=== PATIENT | male | born 2000 | race African-American/Black ===

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

== ENCOUNTER 2019-02-24 22:35 | Emergency (ER) | payer BC, SELFPAY ==
[2019-02-24 22:56] VITALS: BP 122/80; PULSE 79
[2019-02-24] MEDS ORDERED: Famotidine 20 MG Tab PO STA (23:51)
--- NOTE | 2019-02-24 23:52 | EDM.PDOC ---
ED HPI GENERAL MEDICAL PROBLEM - General Chief Complaint: Gastrointestinal Problem Stated Complaint: ABDOMINAL PAIN Time Seen by Provider: 02/24/19 23:05 Source of Information: Reports: Patient History Limitations: Reports: No Limitations - History of Present Illness INITIAL COMMENTS - FREE TEXT/NARRATIVE: Mr. Mcginnis is a pleasant 18-year-old man with a past medical history significant for right kidney atrophy and suspected gastritis/GERD, based on 2 prior visits to this ED, on 08/25/2015 and 09/24/2017. On his initial visit, it was recommended that he take ucjv-sjs-[id number] medications, and on the second visit, it was recommended that he take Prilosec daily with Maalox as needed, then switch to Zantac once a day. The patient now presents to the ED stating that he developed central abdominal pain on 02/19/2019. He describes his pain as achy. It comes and goes, and he has not identified any modifiers. He states that he had nausea and vomiting from 02/19/2019 through 02/22/2019, but none since. He reports that he developed watery diarrhea on 02/20/2019. He had a subjective fever on 02/22/2019, only. The patient states that he has had similar symptoms, about once a year, for the past several years. He has not undergone a prior EGD or colonoscopy. The patient states that he did not take any ttrq-wwh-djmthcw or home remedies since his symptoms began on 02/19/2019. The patient does not have a PCP. He has not received an influenza vaccine this season, and declined an offer for one here today. Middle Abdomen Pain Score (Numeric/FACES): 3 - Related Data Allergies Allergy/AdvReac Type Severity Reaction Status Date / Time No Known Allergies Allergy Verified 02/24/19 22:56 Home Meds: Home Meds . [No Known Home Meds] 09/24/17 [History] Past Medical History Gastrointestinal History: Reports: Gastritis (suspected), GERD (suspected) Genitourinary History: Reports: Other (See Below) (Right kidney atrophy on CT scan) - Past Surgical History HEENT Surgical History: Reports: Oral Surgery (wisdom teeth extraction) Social & Family History - Family History Family Medical History: Noncontributory - Tobacco Use Smoking Status *Q: Never Smoker Tobacco Use Within Last Twelve Months: Vaping (nicotine, 16 yo -> 17 yo) - Caffeine Use Caffeine Use: Reports: Coffee, Soda - Alcohol Use Alcohol Use History: Yes Alcohol Use Frequency: Socially - Recreational Drug Use Recreational Drug Use: Yes Drug Use in Last 12 Months: Yes Recreational Drug Type: Reports: Marijuana/Hashish (last smoked Jan 2019) - Living Situation & Occupation Living situation: Reports: Single, Other (Roomates) 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 ED EXAM, GI/ABD - Physical Exam Exam: See Below Exam Limited By: No Limitations General Appearance: Alert, WD/WN, No Apparent Distress (appears comfortable) Eyes: Bilateral: Normal Appearance, EOMI Ears: Normal External Exam, Hearing Grossly Normal Nose: Normal Inspection Throat/Mouth: Normal Inspection, Normal Lips, Normal Voice, No Airway Compromise Head: Atraumatic, Normocephalic Neck: Normal Inspection, Full Range of Motion Respiratory/Chest: No Respiratory Distress, Lungs Clear, Normal Breath Sounds, No Accessory Muscle Use Cardiovascular: Normal Peripheral Pulses, Regular Rate, Rhythm, No Edema, No Gallop, No JVD, No Murmur, No Rub GI/Abdominal Exam: Normal Bowel Sounds (active!), Soft, Non-Tender (including the central abdomen), No Organomegaly, No Distention, No Abnormal Bruit, No Mass (Male) Exam: Deferred Rectal (Males) Exam: Deferred Back Exam: Normal Inspection, Full Range of Motion, NT Extremities: Normal Inspection, Normal Range of Motion, No Pedal Edema, Normal Capillary Refill Neurological: Alert, Oriented, Normal Cognition, No Motor/Sensory Deficits Psychiatric: Normal Affect Skin Exam: Warm, Dry, Intact, Normal Color, No Rash Course - Vital Signs Last Recorded V/S: Last Vital Signs Temp 36.9 C 02/24/19 22:53 Pulse 79 02/24/19 22:53 Resp 16 02/24/19 22:53 BP 122/80 02/24/19 22:53 Pulse Ox 99 02/24/19 22:53 - Orders/Labs/Meds Meds: Medications Discontinued Medications Generic Name Dose Route Start Last Admin Trade Name Freq PRN Reason Stop Dose Admin Famotidine 40 mg 02/24/19 23:51 02/25/19 00:00 Pepcid PO 02/24/19 23:52 40 mg ONETIME STA Administration - Re-Assessments/Exams Free Text/Narrative Re-Assessment/Exam: 02/24/19 23:52 As per the HPI, the patient has history of similar pain in the past, thought due to gastritis and/or GERD. Although recommendations in the past have included yvch-gjw-zigtbvj medications, Maalox, Zantac, and Prilosec, the patient did not try any of those for his current symptoms. Since the patient's abdomen is soft with active bowel sounds and is completely nontender, I do not see an indication for a work-up at this time. I am, however , recommending that we start him on 40 mg of oral famotidine now, then have him take 1 tablet of wdve-qai-ierdkag famotidine either once or twice a day. Because of the recurrent nature of his abdominal pain, I am recommending that he undergo an EGD, therefore I will refer him to Dr. Ayers. The patient is agreeable with this plan. Departure - Departure Time of Disposition: 00:01 Disposition: Home, Self-Care 01 Condition: Good Clinical Impression: Gastritis Qualifiers: Gastritis type: unspecified gastritis Chronicity: acute Gastritis bleeding: without bleeding Qualified Code(s): K29.00 - Acute gastritis without bleeding - Discharge Information *PRESCRIPTION DRUG MONITORING PROGRAM REVIEWED*: Not Applicable *COPY OF PRESCRIPTION DRUG MONITORING REPORT IN PATIENT MALIK: Not Applicable Instructions: Gastritis, Adult, Zykx-sx-[id number] Referrals: Charly Ayers MD [Physician] - Forms: ED Department Discharge, ED Return to Work/School Form Additional Instructions: You were seen in the emergency room for recurrent central abdominal pain, nausea , vomiting, and watery diarrhea. Based on your history and physical examination, you are most likely suffering from gastritis. You have been started on the antacid medicine famotidine (Pepcid). Famotidine is available skmz-hjg-tbnohfp, and generic is just as good as the brand name. We recommend that you take 1 tablet of famotidine either once or twice a day, on a regular basis. Given the recurrent nature of your abdominal pain, we recommend that you undergo an EGD (scope of your stomach). Please follow-up with the Surgeon Dr. Charly Ayers in this regard. If any other problems, please do not hesitate to return to the ER. Sepsis Event Note - Evaluation Sepsis Screening Result: No Definite Risk - Focused Exam Vital Signs: Vital Signs Temp Pulse Resp BP Pulse Ox 02/24/19 22:53 36.9 C 79 16 122/80 99 Date Exam was Performed: 02/25/19 Time Exam was Performed: 00:17
== END 2019-02-25 00:15 | disposition home or self-care (01) ==
LOC: JD.ED 22:35
DX: K29.00 Acute gastritis without bleeding (principal); Z87.891 Personal history of nicotine dependence
CPT/HCPCS: 99283; A9270; 99282

== ENCOUNTER 2019-03-08 06:10 | Emergency (ER) | payer BC ==
[2019-03-08 06:19] VITALS: BP 152/81; PULSE 81
[2019-03-08] MEDS ORDERED: Famotidine 20 MG Tab PO STA (06:44)
--- NOTE | 2019-03-08 06:57 | EDM.PDOC ---
ED HPI GENERAL MEDICAL PROBLEM - General Chief Complaint: Abdominal Pain Stated Complaint: ABDOMINAL PAIN Time Seen by Provider: 03/08/19 06:32 Source of Information: Reports: Patient History Limitations: Reports: No Limitations - History of Present Illness INITIAL COMMENTS - FREE TEXT/NARRATIVE: Mr. Mcginnis is a 18-year-old man with a past medical history significant for right kidney atrophy and suspected gastritis/GERD, based on 3 prior visits to this ED, on 08/25/2015, 09/24/2017, and 02/24/2019. On his initial visit, it was recommended that he take mwlc-idi-bffjkpt medications, and on his second visit, it was recommended that he take Prilosec daily with Maalox as needed, then switched to Zantac once a day. On his most recent visit, it was recommended that he start taking icyx-eyo-xgvcyhl famotidine once or twice a day, then follow-up with the surgeon Dr. Charly Ayers to arrange for an outpatient EGD. The patient now returns to the ED stating that he felt good for a few days after his last ED visit, but that his pain has recurred on a near daily basis, the same as it had before. He has nausea and vomiting with some of his abdominal pain, but not every time. He also has occasional watery diarrhea. His condition is essentially unchanged from previously. The patient informs me that he did not take famotidine, or any other antacid, and he did not make an appointment to follow-up with Dr. Ayers. No recent fever. The patient does not have a PCP. He has not received any influenza vaccine this season, and declined an offer for one here today. Abdominal Pain Score (Numeric/FACES): 3 - Related Data Allergies Allergy/AdvReac Type Severity Reaction Status Date / Time No Known Allergies Allergy Verified 03/08/19 06:19 Home Meds: Home Meds . [No Known Home Meds] 09/24/17 [History] Past Medical History Gastrointestinal History: Reports: Gastritis (suspected), GERD (suspected) Genitourinary History: Reports: Other (See Below) (Right kidney atrophy on CT scan) - Past Surgical History HEENT Surgical History: Reports: Oral Surgery (wisdom teeth extraction) Social & Family History - Family History Family Medical History: Noncontributory - Tobacco Use Smoking Status *Q: Never Smoker Tobacco Use Within Last Twelve Months: Vaping (nicotine, 16 yo -> 17 yo) Second Hand Smoke Exposure: No - Caffeine Use Caffeine Use: Reports: Coffee, Energy Drinks, Soda - Alcohol Use Alcohol Use History: Yes Alcohol Use Frequency: Socially - Recreational Drug Use Recreational Drug Use: Yes Drug Use in Last 12 Months: Yes Recreational Drug Type: Reports: Marijuana/Hashish (last smoked Jan 2019) - Living Situation & Occupation Living situation: Reports: Single, Other (Roomates) 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 ED EXAM, GI/ABD - Physical Exam Exam: See Below Exam Limited By: No Limitations General Appearance: Alert, WD/WN, No Apparent Distress Eyes: Bilateral: Normal Appearance, EOMI Ears: Normal External Exam, Hearing Grossly Normal Nose: Normal Inspection Throat/Mouth: Normal Inspection, Normal Lips, Normal Voice, No Airway Compromise Head: Atraumatic, Normocephalic Neck: Normal Inspection, Full Range of Motion Respiratory/Chest: No Respiratory Distress, Lungs Clear, Normal Breath Sounds, No Accessory Muscle Use Cardiovascular: Normal Peripheral Pulses, Regular Rate, Rhythm, No Edema, No Gallop, No JVD, No Murmur, No Rub GI/Abdominal Exam: Normal Bowel Sounds, Soft, Non-Tender, No Organomegaly, No Distention, No Abnormal Bruit, No Mass (Male) Exam: Deferred Rectal (Males) Exam: Deferred Back Exam: Normal Inspection, Full Range of Motion, NT Extremities: Normal Inspection, Normal Range of Motion, No Pedal Edema, Normal Capillary Refill Neurological: Alert, Oriented, Normal Cognition, No Motor/Sensory Deficits Psychiatric: Normal Affect Skin Exam: Warm, Dry, Intact, Normal Color, No Rash Course - Vital Signs Last Recorded V/S: Last Vital Signs Temp 36.4 C 03/08/19 06:16 Pulse 81 03/08/19 06:16 Resp 18 03/08/19 06:16 BP 152/81 H 03/08/19 06:16 Pulse Ox 97 03/08/19 06:16 - Orders/Labs/Meds Meds: Medications Discontinued Medications Generic Name Dose Route Start Last Admin Trade Name Freq PRN Reason Stop Dose Admin Famotidine 40 mg 03/08/19 06:44 03/08/19 06:51 Pepcid PO 03/08/19 06:45 40 mg ONETIME STA Administration - Re-Assessments/Exams Free Text/Narrative Re-Assessment/Exam: 03/08/19 06:45 As per the HPI, the patient's current presentation is virtually identical to that of 02/24/2019, where the patient has central abdominal pain, nausea, vomiting, and watery diarrhea, felt most likely due to gastritis. As before, his physical exam is completely benign. I had recommended at that time that he begin taking ynac-kqp-yhtnqhc famotidine 1 tablet either once or twice a day on a regular basis - he did not. I recommended that he follow-up with the surgeon Dr. Ayers to arrange for an EGD - he did not. Since he did not follow any of my recommendations, we cannot say that his plan of care failed. I therefore have no reason to change the plan of care. The patient will therefore be given 40 mg of oral famotidine now, and I will discharge him home with the same recommendations of taking one tablet either once or twice a day on a regular basis, and follow-up with Dr. Ayers to arrange for an EGD. The patient asked if he could have an XRay or something, however, this is a long -term problem (years), and the patient's current physical termination is completely benign, therefore I cannot justify an emergency CT scan or x-ray. The patient said that he would prefer to be referred to a Correctional Counselor/Case Manager in [place] as opposed to seeing Dr. Ayers here, but he did not say why. Unfortunately, I do not have the call schedule of the Gastroenterologists in [place]. I informed the patient that if he wanted to see a Correctional Counselor/Case Manager in [place], he should call the physician referral service for either [facility] or [facility]. Departure - Departure Time of Disposition: 06:59 Disposition: Home, Self-Care 01 Condition: Good Clinical Impression: Gastritis Qualifiers: Gastritis type: unspecified gastritis Chronicity: acute Gastritis bleeding: without bleeding Qualified Code(s): K29.00 - Acute gastritis without bleeding - Discharge Information *PRESCRIPTION DRUG MONITORING PROGRAM REVIEWED*: Not Applicable *COPY OF PRESCRIPTION DRUG MONITORING REPORT IN PATIENT MALIK: Not Applicable Referrals: Charly Ayers MD [Physician] - Forms: ED Department Discharge Additional Instructions: You were seen in the emergency room for recurrent central abdominal pain, nausea , vomiting, and watery diarrhea. Based on your history and physical examination, you are most likely suffering from gastritis. You have been started on the antacid medicine famotidine (Pepcid). Famotidine is available [id number], and generic is just as good as the brand name. We recommend that you take one tablet of famotidine either once or twice a day, on a regular basis. Given the recurrent nature of your abdominal pain, we recommend that you undergo an EGD (scope of your stomach). Please follow-up with the Surgeon Dr. Charly Ayers in this regard. If you prefer to see a Correctional Counselor/Case Manager in [place], please call the physician referral service for either [facility] or [facility]. If any other problems, please do not hesitate to return to the ER. Sepsis Event Note - Evaluation Sepsis Screening Result: No Definite Risk - Focused Exam Vital Signs: Vital Signs Temp Pulse Resp BP Pulse Ox 03/08/19 06:16 36.4 C 81 18 152/81 H 97 Date Exam was Performed: 03/08/19 Time Exam was Performed: 07:02
== END 2019-03-08 07:15 | disposition home or self-care (01) ==
LOC: JD.ED 06:10
DX: K29.00 Acute gastritis without bleeding (principal); Z87.891 Personal history of nicotine dependence
CPT/HCPCS: 99283; A9270; 99282

== ENCOUNTER 2023-03-14 08:09 | Emergency (ER) | payer BC, SELFPAY ==
[2023-03-14 08:20] VITALS: PULSE 68
[2023-03-14] MEDS ORDERED: Albuterol 0.083% 2.5 MG/3 ML Neb Soln NEB ONE (08:25)
[2023-03-14 09:05] LABS: HEMATOCRIT 42.9 % (42.0-52.0); HEMOGLOBIN 14.1 gm/dl (14.0-18.0); MEAN CORPUSCULAR HEMOGLOBIN 25.3 pg (28.0-32.0); MEAN CORPUSCULAR HGB CONC 32.9 g/dl (32.0-36.0); MEAN PLATELET VOLUME 9.1 fl (9.4-12.4); PLATELET COUNT,PLT 267 K/mm3 (150-400); RED BLOOD CELL COUNT 5.57 M/mm3 (4.52-5.90); WHITE BLOOD CELL COUNT,WBC 8.97 K/mm3 (3.9-11.3)
[2023-03-14 09:38] LABS: CORONAVIRUS COVID-19 NAA NEGATIVE (NEGATIVE); INFLUENZA A NAA NEGATIVE (NEGATIVE); RESPIRATORY SYNCYTIAL VIR NAA NEGATIVE (NEGATIVE)
[2023-03-14 09:58] LABS: ALBUMIN 3.9 g/dl (3.4-5.0); ANION GAP 13.7 (5-15); BILIRUBIN TOTAL 0.9 mg/dL (0.2-1.0); BUN/CREATININE RATIO 7.5 (14-18); CALCIUM 9.3 mg/dL (8.5-10.1); CREATININE 1.2 mg/dL (0.7-1.3); EST CRCL DRUG DOSING (CG) 101.1 mL/min; POTASSIUM,K 3.7 mEq/L (3.5-5.1); PROTEIN TOTAL,TP 7.7 g/dl (6.4-8.2)
[2023-03-14 10:46] VITALS: BP 132/90
== END 2023-03-14 10:45 | disposition home or self-care (01) ==
LOC: JD.ED 08:09
DX: R06.02 Shortness of breath (principal); U07.0 Vaping-related disorder; Z86.16 Personal history of COVID-19
CPT/HCPCS: 0241U; 36415; 71045; 80053; 83880; 84484; 85027; 93005; 94640; 99285; 93010; 99282; J7620-GY

== ENCOUNTER 2024-11-04 14:07 | Emergency (ER) | payer SELFPAY ==
[2024-11-04 15:38] VITALS: BP 132/78; PULSE 95
== END 2024-11-04 15:39 | disposition home or self-care (01) ==
LOC: JD.ED 14:07
DX: M54.50 Low back pain, unspecified (principal); Z86.16 Personal history of COVID-19; Z79.899 Other long term (current) drug therapy
CPT/HCPCS: 72128; 72131; 99283; A9270